=== PATIENT | male | born 1985 | race Caucasian/White ===

== ENCOUNTER 2016-09-16 13:53 | Emergency (ER) | payer BC, OTHER ==
[~2016-09-16] VITALS: Ht 185.4 cm; Wt 104.0 kg
[~2016-09-16 13:53] MED LIST: HYDR-5688 PO; METH500T37 PO; PRED10TA PO
[2016-09-16 14:02] VITALS: BP 118/75; PULSE 75; TEMP 36.8; O2SAT 96; Ht 185.4 cm; Wt 104.0 kg
--- NOTE | 2016-09-17 13:16 | EMERGENCY ROOM VISIT NOTE ---
ED Visit Note First contact with patient: 14:06 Chief Complaint: Right sided throat pain. History of Present Illness: Mr. De Dios is a 31-year-old white male who ambulates into the ED accompanied by his complaining of right sided anterior throat pain. Patient reports he started developing throat pain for months ago. He reports a pattern of throat discomfort that gradually increases in intensity over few days , lasts for a few days and gradually decreases in intensity and finally resolves. The pain then starts up a few days later in the same fashion. His current episode of pain started approximately [address] his discomfort right lateral to the inferior aspect of the thyroid cartilage within the groove of the anterior sternocleidomastoid muscle. He describes his pain as a sharp sensation. He rates his discomfort 3/10. The pain is nonradiating. The pain worsens with swallowing and palpation. He has not identified any alleviating factors related to the pain. He has not taken any medications for pain prior to arrival at the hospital. Associated with his pain he reports intermittently he feels like he has difficulty swallowing but does not have any current difficulty swallowing. He has not taken any medications for his discomfort prior to arrival at the hospital. He denies any associated fevers, chills, sweats, skin eruptions, skin color changes, moist changes, drooling, trauma, recent or previous choking episodes, cough, wheezing, shortness of breath, nausea, vomiting previous throat surgeries. Review of Systems: As noted above in history of present illness. 8 body systems were reviewed and found to be negative as noted above. Past Medical History: Status post wisdom teeth extraction and unspecified hip surgeries. Current Medications: [place], Robaxin, prednisone Allergies to Medications: Patient denies. Social History: Patient is currently employed; he feels safe in his home environment; he admits to tobacco use and denies alcohol use. Physical Examination: Vital Signs: Date Time Temp Pulse Resp B/P Pulse Ox O2 Delivery O2 Flow Rate FiO2 09/16/16 14:02 96 Room Air 09/16/16 14:02 36.8 75 16 118/75 96 GENERAL: 31-year-old male in mild distress due to pain, nontoxic-appearing, afebrile and hemodynamically stable. NEUROLOGICAL: Awake, alert and oriented to person, place and time. Answering questions appropriately and following commands. Normal gait. Good hand eye coordination. No focal motor sensory deficits. SKIN: Warm, dry and pink. No soft tissue eruptions or trauma noted. HEENT: Atraumatic and normocephalic. No drainage from naris. Oral cavity moist and pink. Airway patent. Uvula midline and no abscesses are seen. No tonsillar hypertrophy or exudates. No posterior pharyngeal erythema or edema. Pharynx is nonerythematous or edematous. Speech normal. No lymphadenopathy. No laryngeal tenderness. There is tenderness in the area of his discomfort but no palpable abnormalities. Trachea midline. No jugular venous distention. No auditory or auscultatory stridor. BACK: No tenderness over the bony spine. Full range of motion of the cervical spine THORAX: Lungs sounds are clear to auscultation and equal bilaterally with symmetrical chest wall. No wheezing, rales or rhonchi. ED Course: Patient is assessed as noted above. Patient was offered laboratory testing and CT examination and refused. Patient was offered pain medications and refused. Patient was educated about tonight's findings and instructed on his treatment plan; he verbalizes understanding and agreement with this plan. Clinical Impression: Right sided throat pain. Decision-Making: Initially my differential diagnosis I considered pharyngitis from multiple causes, lymphadenopathy, abscess, soft tissue mass and other causes. Disposition: Patient discharged home in stable condition accompanied by his ; prior to departure he was reassessed and subjectively reported he was feeling the same. Plan: Patient was encouraged to use ibuprofen or acetaminophen as needed for pain. Patient was encouraged to use a liquid or mechanical soft diet until resolution of throat discomfort and/or difficulty swallowing. Patient was encouraged to follow-up with ENT specialist and PCP for recheck. Patient was encouraged return ED for worsening/uncontrolled pain, worsening difficulty swallowing, fevers or any new/concerning symptoms.
== END 2016-09-16 14:50 | disposition home or self-care (01) ==
LOC: C.EDB 13:55 → C.EDD 14:50
DX: R07.0 Pain in throat (principal); Z72.0 Tobacco use

== ENCOUNTER 2018-03-29 01:27 | Emergency (ER) | payer OTHER, BC ==
[~2018-03-29] VITALS: Ht 185.4 cm; Wt 101.2 kg
[~2018-03-29 01:27] MED LIST changes: -HYDR-5688 PO; -METH500T37 PO; +PANT40TA2 PO; -PRED10TA PO
[2018-03-29 01:39] VITALS: TEMP 36.9; Ht 185.4 cm; Wt 101.2 kg
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
[2018-03-29] MEDS ORDERED: OXYC-737 PO (02:12)
[2018-03-29] MEDS ORDERED: OXYCODONE IR HOME PACK PO ONE (02:15)
[2018-03-29 02:30] VITALS: BP 141/72; PULSE 82; O2SAT 99
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
== END 2018-03-29 02:30 | disposition home or self-care (01) ==
LOC: C.EDB 01:28
DX: S62.306A Unspecified fracture of fifth metacarpal bone, right hand, initial encounter for closed fracture (principal); W22.8XXA Striking against or struck by other objects, initial encounter; F17.200 Nicotine dependence, unspecified, uncomplicated; Z79.899 Other long term (current) drug therapy